=== PATIENT | male | born 1965 | race Caucasian/White ===

== ENCOUNTER 2020-11-18 06:01 | Inpatient (IN) ==
[2020-11-18 06:27] LABS: Basophils # (auto) 0.03 K/uL (0-0.2); Basophils % (auto) 0.2 %; Eosinophils # (auto) 0.04 K/uL (0-0.5); Eosinophils % (auto) 0.3 %; Hematocrit (blood only) 41.2 % (42-52); Hemoglobin 14.3 g/dL (14.0-18.0); Immature Granulocytes # (auto) 0.07 K/uL (0.00-0.02); Immature Granulocytes % (auto) 0.4 %; Lymphocytes # (auto) 0.91 K/uL (1.2-3.4); Lymphocytes % (auto) 5.8 %; Mean Corpuscular Hemoglobin 30.6 pg (25-34); Mean Corpuscular Hgb Conc 34.7 g/dL (32-36); Mean Corpuscular Volume 88.2 fL (80-100); Mean Platelet Volume 10.7 fL (7.4-10.4); Monocytes # (auto) 0.64 K/uL (0.11-0.59); Monocytes % (auto) 4.1 %; Neutrophils # (auto) 13.92 K/uL (1.4-6.5); Neutrophils % (auto) 89.2 %; Platelet Count 296 K/uL (130-400); RDW Coefficient of Variation 14.4 % (11.5-14.5); RDW Standard Deviation 46.5 fL (36.4-46.3); Red Blood Count 4.67 M/uL (4.7-6.1); White Blood Count 15.61 K/uL (4.8-10.8)
[2020-11-18 06:43] LABS: Alanine Aminotransferase 50 U/L (12-78); Albumin Level 4.3 gm/dl (3.4-5.0); Aspartate Aminotransferase 27 U/L (15-37); BUN Creatinine Ratio 20.4 (10-20); Blood Urea Nitrogen 20 mg/dl (7-18); Calcium 8.8 mg/dl (8.5-10.1); Carbon Dioxide 27 mmol/L (21-32); Chloride 107 mmol/L (98-107); Est GFR (African American) 100.9; Est GFR (Non-African American) 87.1; Glucose 172 mg/dl (70-99); Potassium 3.5 mmol/L (3.5-5.1); Sodium 140 mmol/L (136-145)
[2020-11-18 06:48] LABS: Albumin Globulin Ratio 1.2 (0.9-2); Alkaline Phosphatase 98 U/L (45-117); Bilirubin,Total 0.4 mg/dl (0.2-1); Globulin 3.5 gm/dl (2.5-4.0); Total Protein 7.8 gm/dl (6.4-8.2); Troponin I < 0.015 ng/ml (0-0.045)
[2020-11-18] MEDS ORDERED: KETOROLAC TROMETHAMINE 15 MG/ML VIAL IV ONE (06:48)
[2020-11-18] MEDS ORDERED: SODIUM CHLORIDE 0.9% 1000ML 1,000 ML IV ONE (06:51)
--- NOTE | 2020-11-18 06:55 | Emergency Department Note ---
Impression & Plan Seizure, Thoracic compression fracture, Diabetes ED Provider Note NAME: REBECA GARCIA AGE: 54 SEX: M : 1965 ARRIVES VIA: Ambulance INFORMANT: Patient, ED PROVIDER(S): Bill Hendrickson DO CHIEF COMPLAINT: Back pain HPI: Patient is a 54-year-old male who presents ER who was at [facility]. He woke up to fill the stove with wood. This last thing he remembers. His friends woke up to him yelling. They did not believe that he was confused. He is c omplaining severe left upper back pain. He has had this multiple times before in the past. Never been evaluated for this. He does have a history of low blood sugar. He does have seizures from low blood sugar but no seizure disorder. He denies any headache or change in vision. No neck pain. No chest pain, belly pain, or any other extremity pain. No weakness or numbness. He notes his tongue does hurt. No other exacerbating or remitting factors. He was given 10 mg of morphine as well as Zofran prior to arrival by EMS. Following this he became slightly hypoxic. He also admits to loss of control of his bladder but no loss control of bowels. ROS: See above HPI for pertinent positives & negatives. A total of 10 systems reviewed and were otherwise negative. PAST MEDICAL HISTORY:See Below PAST SURGICAL HISTORY:See Below FAMILY HISTORY:See Below SOCIAL HISTORY:See Below HOME MEDICATIONS:See Below ALLERGIES:See Below VITALS:See Below PHYSICAL EXAMINATION: GENERAL: Sitting up in bed, alert, disheveled, mild distress HEAD: contusion to right head EYE EXAM: normal conjunctiva. PERRL and EOM's grossly intact. OROPHARYNX: Bite matos on anterior tongue NECK: supple, no nuchal rigidity, no adenopathy, non-tender LUNGS: Clear to auscultation. Normal chest wall mechanics HEART: no murmurs, S1 normal and S2 normal ABDOMEN: abdomen soft, non-tender, normo-active bowel sounds, no masses, no rebound or guarding. BACK: Back is symmetrical on inspection and there is no deformity. Tenderness just under the left scapula tracking medially to the spine. SKIN: no rashes and no bruising UPPER EXTREMITIES: upper extremities are grossly normal. LOWER EXTREMITIES: No pitting edema. NEURO EXAM: Normal sensorium, cranial nerves II-XII intact, normal speech, no weakness of arms, no weakness of legs. No drift. Finger to nose intact. Gross sensation intact. MEDICAL DECISION MAKING: Patient is a 54-year-old male who presents the ER for what appears to be a seiz ure with a fall. Fever likely secondary to hypoglycemia as he has had this before. Labs show mild leukocytosis of 15,000. No significant anemia. BMP with LFTs bilirubin troponin and lipase were negative. UA was negative. Alcohol was negative. Covid was negative. CT head neck chest and thorax shows a T5 fracture with 2 mm of retropulsion. He is having severe amount of pain. He was given IV fluids and narcotics. He was updated bedside. Discussed with orthopedics and the hospitalist for further evaluation. Triage Nursing notes reviewed. Limited review of prior medical records performed Vital Signs: reviewed and remarkable for hypoxic Differential diagnosis: Differential diagnoses includes but is not limited to lumbar radiculopathy, kidney stone, muscle strain, facture, cauda equina, mass, and disc herniation. ER treatment provided: See below Diagnostics interpreted by me: ECG: Sinus rhythm rate 72 Normal axis No PVCs QTC 457 T wave inversion lead III Cardiac Monitoring: An order was placed for continuous cardiac monitoring. The monitor shows a rate of 71 with sinus rhythm. Laboratory studies: As stated above and show below. Imaging studies: CT head and cervical spine were negative CT of the thoracic spine show T5 compression fracture 50% with 2 mm retropulsion Consultation(s): Discussed with Blue Florentino from [facility] who will evaluate him with Dr. Chacon later today Discussed with Dr. Neff for further evaluation Procedures: none Critical Care: None Past Med/Surg History Social History Smoking Status: Never smoker Feels Safe at Home: Yes Allergies Allergies Allergy/AdvReac Type Severity Reaction Status Date / Time Penicillins Allergy Severe Anaphylaxis Verified 11/18/20 07:05 Home Meds Home Medications Medication Instructions Recorded Confirmed atorvastatin 40 mg PO DAILY 11/18/20 11/18/20 cyanocobalamin (vitamin B-12) 1,000 mcg PO DAILY 11/18/20 11/18/20 [Vitamin B-12] dicyclomine 10 mg PO TID PRN 11/18/20 11/18/20 insulin glargine [Lantus Solostar 25 unit SUBCUT AMPM 11/18/20 11/18/20 U-100 Insulin] insulin lispro [Humalog KwikPen See Rx Instructions .ROUTE .COMPLEX 11/18/20 11/18/20 Insulin] levothyroxine 137 mcg PO DAILY 11/18/20 11/18/20 Results & Data (ED) Vital Signs Vital Signs - 24 hr 11/18/20 06:11 11/18/20 06:23 11/18/20 07:12 Temperature 36.6 C Temperature Source Oral Pulse Rate 72 71 Pulse Rate from SpO2 Sensor 72 Respiratory Rate 12 24 Respiratory Effort / Characteristics Non-Labored Spontaneous Respiratory Depth Normal Blood Pressure 149/88 H 142/78 H Blood Pressure Mean 108 99 Pulse Oximetry 100 87 L 98 Oxygen Delivery Method Room Air Nasal Cannula Oxygen Flow Rate 0 Sepsis Recent Fever Within 48 Hours No Sepsis New/Unexplained Change in Mental Status No Sepsis Action Taken by Nursing No Action Required Oxygen Flow Rate - Titration 2 Pulse Oximetry Post Tiitration 98 11/18/20 08:00 11/18/20 08:30 11/18/20 09:00 Temperature Temperature Source Pulse Rate 82 72 72 Pulse Rate from SpO2 Sensor 83 71 70 Respiratory Rate 18 11 L 15 Respiratory Effort / Characteristics Respiratory Depth Blood Pressure 147/80 H 138/76 139/75 Blood Pressure Mean 102 96 96 Pulse Oximetry 98 97 98 Oxygen Delivery Method Oxygen Flow Rate Sepsis Recent Fever Within 48 Hours Sepsis New/Unexplained Change in Mental Status Sepsis Action Taken by Nursing Oxygen Flow Rate - Titration Pulse Oximetry Post Tiitration 11/18/20 09:30 11/18/20 10:00 11/18/20 11:54 Temperature Temperature Source Pulse Rate 73 72 89 Pulse Rate from SpO2 Sensor 72 72 88 Respiratory Rate 13 16 23 Respiratory Effort / Characteristics Respiratory Depth Blood Pressure 135/83 146/85 H 129/73 Blood Pressure Mean 100 105 91 Pulse Oximetry 98 99 99 Oxygen Delivery Method Oxygen Flow Rate Sepsis Recent Fever Within 48 Hours Sepsis New/Unexplained Change in Mental Status Sepsis Action Taken by Nursing Oxygen Flow Rate - Titration Pulse Oximetry Post Tiitration 11/18/20 12:00 11/18/20 12:30 11/18/20 13:00 Temperature Temperature Source Pulse Rate 77 75 74 Pulse Rate from SpO2 Sensor 77 Respiratory Rate 15 16 16 Respiratory Effort / Characteristics Respiratory Depth Blood Pressure 130/70 127/67 117/66 Blood Pressure Mean 90 87 83 Pulse Oximetry 98 Oxygen Delivery Method Oxygen Flow Rate Sepsis Recent Fever Within 48 Hours Sepsis New/Unexplained Change in Mental Status Sepsis Action Taken by Nursing Oxygen Flow Rate - Titration Pulse Oximetry Post Tiitration Laboratory Data Result diagrams: 11/18/20 06:08 11/18/20 06:08 Lab Results 11/18/20 11/18/20 11/18/20 Range/Units 06:08 06:08 06:08 WBC 15.61 H (4.8-10.8) K/uL RBC 4.67 L (4.7-6.1) M/uL Hgb 14.3 (14.0-18.0) g/dL Hct 41.2 L (42-52) % MCV 88.2 (80-100) fL MCH 30.6 (25-34) pg MCHC 34.7 (32-36) g/dL RDW Std Deviation 46.5 H (36.4-46.3) fL RDW Coeff of [place] 14.4 (11.5-14.5) % Plt Count 296 (130-400) K/uL MPV 10.7 H (7.4-10.4) fL Immature Gran % (Auto) 0.4 % Neut % (Auto) 89.2 % Lymph % (Auto) 5.8 % [place] % (Auto) 4.1 % Eos % (Auto) 0.3 % Baso % (Auto) 0.2 % Neut # (Auto) 13.92 H (1.4-6.5) K/uL Lymph # (Auto) 0.91 L (1.2-3.4) K/uL [place] # (Auto) 0.64 H (0.11-0.59) K/uL Eos # (Auto) 0.04 (0-0.5) K/uL Baso # (Auto) 0.03 (0-0.2) K/uL Immature Gran # (Auto) 0.07 H (0.00-0.02) K/uL Sodium 140 (136-145) mmol/L Potassium 3.5 (3.5-5.1) mmol/L Chloride 107 (98-107) mmol/L Carbon Dioxide 27 (21-32) mmol/L Anion Gap 6.0 (3-11) BUN 20 H (7-18) mg/dl Creatinine 0.98 (0.6-1.4) mg/dl Est Cr Clr Drug Dosing 89.0 ml/min Est GFR ( Amer) 100.9 Est GFR (Non-Af Amer) 87.1 BUN/Creatinine Ratio 20.4 H (10-20) Glucose 172 H (70-99) mg/dl Calcium 8.8 (8.5-10.1) mg/dl Total Bilirubin 0.4 (0.2-1) mg/dl AST 27 (15-37) U/L ALT 50 (12-78) U/L Alkaline Phosphatase 98 (45-117) U/L Troponin I < 0.015 (0-0.045) ng/ml Total Protein 7.8 (6.4-8.2) gm/dl Albumin 4.3 (3.4-5.0) gm/dl Globulin 3.5 (2.5-4.0) gm/dl Albumin/Globulin Ratio 1.2 (0.9-2) Lipase 52 L (73-393) U/L Urine Color Urine Appearance (Clear) Urine pH (4.5-7.5) Ur Specific [place] (1.000-1.030) Urine Protein (Negative) Urine Glucose (UA) (Negative) Urine Ketones (Negative) Urine Blood (Negative) Urine Nitrite (Negative) Urine Bilirubin (Negative) Urine Urobilinogen (Negative) Ur Leukocyte Esterase (Negative) Ethyl Alcohol mg/dL (0-3) mg/dl COVID-19 Eval Order SARS-CoV-2 (PCR) (Negative) Influenza Type A (PCR) (Neg) Influenza Type B (PCR) (Neg) RSV (RT-PCR) (Neg) 11/18/20 11/18/20 11/18/20 Range/Units 07:12 07:13 10:11 WBC (4.8-10.8) K/uL RBC (4.7-6.1) M/uL Hgb (14.0-18.0) g/dL Hct (42-52) % MCV (80-100) fL MCH (25-34) pg MCHC (32-36) g/dL RDW Std Deviation (36.4-46.3) fL RDW Coeff of [place] (11.5-14.5) % Plt Count (130-400) K/uL MPV (7.4-10.4) fL Immature Gran % (Auto) % Neut % (Auto) % Lymph % (Auto) % [place] % (Auto) % Eos % (Auto) % Baso % (Auto) % Neut # (Auto) (1.4-6.5) K/uL Lymph # (Auto) (1.2-3.4) K/uL [place] # (Auto) (0.11-0.59) K/uL Eos # (Auto) (0-0.5) K/uL Baso # (Auto) (0-0.2) K/uL Immature Gran # (Auto) (0.00-0.02) K/uL Sodium (136-145) mmol/L Potassium (3.5-5.1) mmol/L Chloride (98-107) mmol/L Carbon Dioxide (21-32) mmol/L Anion Gap (3-11) BUN (7-18) mg/dl Creatinine (0.6-1.4) mg/dl Est Cr Clr Drug Dosing ml/min Est GFR ( Amer) Est GFR (Non-Af Amer) BUN/Creatinine Ratio (10-20) Glucose (70-99) mg/dl Calcium (8.5-10.1) mg/dl Total Bilirubin (0.2-1) mg/dl AST (15-37) U/L ALT (12-78) U/L Alkaline Phosphatase (45-117) U/L Troponin I (0-0.045) ng/ml Total Protein (6.4-8.2) gm/dl Albumin (3.4-5.0) gm/dl Globulin (2.5-4.0) gm/dl Albumin/Globulin Ratio (0.9-2) Lipase (73-393) U/L Urine Color Yellow Urine Appearance Clear (Clear) Urine pH 5.5 (4.5-7.5) Ur Specific [place] 1.017 (1.000-1.030) Urine Protein Negative (Negative) Urine Glucose (UA) Negative (Negative) Urine Ketones 2+ H (Negative) Urine Blood Negative (Negative) Urine Nitrite Negative (Negative) Urine Bilirubin Negative (Negative) Urine Urobilinogen Negative (Negative) Ur Leukocyte Esterase Negative (Negative) Ethyl Alcohol mg/dL < 3.0 (0-3) mg/dl COVID-19 Eval Order [facility]Rsv at [facility] SARS-CoV-2 (PCR) (Negative) Influenza Type A (PCR) (Neg) Influenza Type B (PCR) (Neg) RSV (RT-PCR) (Neg) 11/18/20 Range/Units 10:11 WBC (4.8-10.8) K/uL RBC (4.7-6.1) M/uL Hgb (14.0-18.0) g/dL Hct (42-52) % MCV (80-100) fL MCH (25-34) pg MCHC (32-36) g/dL RDW Std Deviation (36.4-46.3) fL RDW Coeff of [place] (11.5-14.5) % Plt Count (130-400) K/uL MPV (7.4-10.4) fL Immature Gran % (Auto) % Neut % (Auto) % Lymph % (Auto) % [place] % (Auto) % Eos % (Auto) % Baso % (Auto) % Neut # (Auto) (1.4-6.5) K/uL Lymph # (Auto) (1.2-3.4) K/uL [place] # (Auto) (0.11-0.59) K/uL Eos # (Auto) (0-0.5) K/uL Baso # (Auto) (0-0.2) K/uL Immature Gran # (Auto) (0.00-0.02) K/uL Sodium (136-145) mmol/L Potassium (3.5-5.1) mmol/L Chloride (98-107) mmol/L Carbon Dioxide (21-32) mmol/L Anion Gap (3-11) BUN (7-18) mg/dl Creatinine (0.6-1.4) mg/dl Est Cr Clr Drug Dosing ml/min Est GFR ( Amer) Est GFR (Non-Af Amer) BUN/Creatinine Ratio (10-20) Glucose (70-99) mg/dl Calcium (8.5-10.1) mg/dl Total Bilirubin (0.2-1) mg/dl AST (15-37) U/L ALT (12-78) U/L Alkaline Phosphatase (45-117) U/L Troponin I (0-0.045) ng/ml Total Protein (6.4-8.2) gm/dl Albumin (3.4-5.0) gm/dl Globulin (2.5-4.0) gm/dl Albumin/Globulin Ratio (0.9-2) Lipase (73-393) U/L Urine Color Urine Appearance (Clear) Urine pH (4.5-7.5) Ur Specific [place] (1.000-1.030) Urine Protein (Negative) Urine Glucose (UA) (Negative) Urine Ketones (Negative) Urine Blood (Negative) Urine Nitrite (Negative) Urine Bilirubin (Negative) Urine Urobilinogen (Negative) Ur Leukocyte Esterase (Negative) Ethyl Alcohol mg/dL (0-3) mg/dl COVID-19 Eval Order SARS-CoV-2 (PCR) NEGATIVE (Negative) Influenza Type A (PCR) Negative (Neg) Influenza Type B (PCR) Negative (Neg) RSV (RT-PCR) Negative (Neg) Administered Medications Discontinued Medications Sodium Chloride (Nss 1000ml) 1,000 mls @ 999 mls/hr IV .[id number] ONE Stop: 11/18/20 07:51 Last Infusion: 11/18/20 08:12 Dose: 0 mls/hr Documented by: [id number] Admin: 11/18/20 07:11 Dose: 999 mls/hr Documented by: [id number] Ioversol (Optiray 320 125ml) 118 ml IV ONCE ONE Stop: 11/18/20 07:01 Last Admin: 11/18/20 07:00 Dose: 118 ml Documented by: [id number] Ketorolac Tromethamine (Ketorolac Tromethamine 15 Mg/Ml Vial) 10 mg IV NOW ONE Stop: 11/18/20 06:49 Last Admin: 11/18/20 07:10 Dose: 10 mg Documented by: [id number] Morphine Sulfate (Morphine Sulfate 10 Mg/Ml Carp/Vial) 6 mg IV NOW STA Stop: 11/18/20 12:00 Last Admin: 11/18/20 12:04 Dose: 6 mg Documented by: [id number] Discharge Plan Visit Data Chief Complaint: Back Injury/Pain Stated Complaint: Pain b/w shoulder blades ED Provider: Bill Hendrickson Discharge Problem: Seizure, Thoracic compression fracture, Diabetes Discharge Instructions Interventions: ED Discharge Assessment Last Done: 11/18/20 13:06 Forms Stand Alone Forms: [employer] Prescriptions Prescriptions: No Action atorvastatin 40 mg tablet 40 mg PO DAILY RF: 0 levothyroxine 137 mcg tablet 137 mcg PO DAILY RF: 0 insulin lispro [Humalog KwikPen Insulin] 100 unit/mL insulin pen See Rx Instructions .ROUTE .COMPLEX RF: 0 Lantus Solostar U-100 Insulin 100 unit/mL (3 mL) insulin pen 25 unit SUBCUT AMPM RF: 0 cyanocobalamin (vitamin B-12) [Vitamin B-12] 1,000 mcg Tablet 1,000 mcg PO DAILY RF: 0 dicyclomine 10 mg capsule 10 mg PO TID PRN (Reason: abdominal cramping) RF: 0 Referrals Referrals: PCP,NO [Primary Care Provider] - Discharge Problem: Thoracic compression fracture Qualifiers: Encounter type: initial encounter Thoracic vertebra fracture level: T5 Qualified Code(s): S22.050A - Wedge compression fracture of T5-T6 vertebra, initial encounter for closed fracture Diabetes Qualifiers: Diabetes mellitus type: other specified (including BARON) Diabetes mellitus terminal clerk insulin use: unspecified half-way insulin use status Diabetes mellitus complication status: with other specified complication Qualified Code(s): E13.69 - Other specified diabetes mellitus with other specified complication
[2020-11-18] MEDS ORDERED: OPTIRAY 320 125ml IV ONE (07:00)
[2020-11-18 07:34] LABS: Appearance Urine Clear (Clear); Bilirubin Urine Negative (Negative); Blood Urine Negative (Negative); Color Urine Yellow; Glucose Urine UA Negative (Negative); Ketones Urine 2+ (Negative); Leukocyte Esterase Urine Negative (Negative); Nitrite Urine Negative (Negative); Protein Urine Negative (Negative); Specific Gravity Urine 1.017 (1.000-1.030); Urobilinogen Urine Negative (Negative); pH Urine 5.5 (4.5-7.5)
--- NOTE | 2020-11-18 08:40 | CT Scan Report ---
HEAD CT NONCONTRAST CT DOSE: HISTORY: Fall. TECHNIQUE: Multiaxial CT images of the head were performed without the use of intravenous contrast. A utomated exposure control was utilized for this study. A dose lowering technique was utilized adheri ng to the principles of ALARA. Comparison: None. Findings: Mild mucosal thickening within the ethmoid air cells. The mastoid air cells are clear. The calvarium and skull base are intact. The ventricles and sulci are within normal limits. There is no m ass, hematoma, midline shift, or acute infarct. Impression: No acute intracranial abnormality. ACT 112: Negative or not required by law. Electronically signed by: Kameron Marvin M.D. 11/18/2020 8:39 AM
--- NOTE | 2020-11-18 08:44 | CT Scan Report ---
CERVICAL SPINE CT CT DOSE: HISTORY: fall TECHNIQUE: Multiaxial CT images of the cervical spine were performed and reformatted in the sagittal and coronal plane without the use of contrast. A dose lowering technique was utilized adhering to th e principles of ALARA. COMPARISON: None. FINDINGS: No fractures. No subluxation. Prevertebral soft tissues and the C1-C2 interval are intact. No pneumothorax. Moderate to severe disc space narrowing within the lower cervical spine. IMPRESSION: No fractures within the cervical spine. ACT 112: Negative or not required by law. Electronically signed by: Kameron Marvin M.D. 11/18/2020 8:42 AM
--- NOTE | 2020-11-18 08:48 | CT Scan Report ---
THORACIC SPINE CT CT DOSE: HISTORY: Back pain. fall TECHNIQUE: Multiaxial CT images of the thoracic spine were performed and reformatted in the sagittal and coronal plane without the use of contrast. A dose lowering technique was utilized adhering to th e principles of ALARA. COMPARISON: None. FINDINGS: There is an acute moderate inferior endplate compression fracture at T5 demonstrating up to 50% loss of height centrally. There is 2 mm of retropulsion of the posterior inferior corner of T5. No significant central canal narrowing. Small focal superior endplate indentation at T4 and T8 favor Schmorl's nodes. No additional fractures identified within the thoracic spine. There is mild paravert ebral edema at the T5 level. IMPRESSION: An acute moderate inferior endplate compression fracture at T5 demonstrating up to 50% loss of height centrally. There is also a 2 mm of retropulsion the posterior inferior corner of T5 without central canal narrowing. ACT 112: Negative or not required by law. Electronically signed by: Kameron Marvin M.D. 11/18/2020 8:47 AM
--- NOTE | 2020-11-18 09:10 | CT Scan Report ---
CHEST CTA for PULMONARY ARTERIES CT DOSE: 1956.10 mGy.cm HISTORY: Fall. Loss of consciousness. Shortness of breath. TECHNIQUE: Multiaxial CT images of the chest were performed following the intravenous administration of contrast to evaluate the pulmonary arteries. Maximal intensity projection images were also obtaine d. A dose lowering technique was utilized adhering to the principles of ALARA. COMPARISON STUDY: None. FINDINGS: There is again noted an acute inferior endplate compression fracture at T5. Normal caliber thoracic aorta with no evidence for dissection. No pleural or pericardial effusions. The heart is bor derline enlarged. No filling defects within the pulmonary arteries to suggest pulmonary embolus. No m ediastinal or hilar lymphadenopathy. Limited views of the upper abdomen demonstrate a normal liver, s pleen, and adrenal glands. Normal caliber esophagus. No pneumothorax. Mild emphysema. The central air ways are patent. A few bibasilar linear densities which favor subsegmental atelectasis. Otherwise, no focal lung consolidations to suggest pneumonia. IMPRESSION: 1. Redemonstration of the acute inferior endplate compression fracture at T5. 2. Emphysema. 3. No evidence for pulmonary embolus. 4. A few bibasilar linear densities consistent with subsegmental atelectasis. ACT 112: Negative or not required by law. Electronically signed by: Kameron Marvin M.D. 11/18/2020 9:09 AM
--- NOTE | 2020-11-18 09:41 | XRay Report ---
XR chest 1V portable HISTORY: Atypical Chest Pain COMPARISON: None. FINDINGS: Emphysema. No focal lung consolidations to suggest pneumonia. No evidence for pulmonary bharti ma. The heart is top normal in size. No pleural effusions. No pneumothorax. IMPRESSION: No acute process. ACT 112: Negative or not required by law. Electronically signed by: Kameron Marvin M.D. 11/18/2020 9:39 AM
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
[2020-11-18 11:03] LABS: Influenza A virus by PCR Negative (Neg); Influenza B virus by PCR Negative (Neg); RSV by PCR Negative (Neg); SARS CoV2 RNA(COVID-19) InHosp NEGATIVE (Negative)
[2020-11-18] MEDS ORDERED: MoRPHine SULFATE 10 MG/ML CARP/VIAL IV STA (11:59)
--- NOTE | 2020-11-18 13:16 | Electrocardiogram Report ---
Test Reason : Blood Pressure : / mmHG Vent. Rate : 072 BPM Atrial Rate : 072 BPM P-R Int : 180 ms QRS Dur : 076 ms QT Int : 418 ms P-R-T Axes : 047 048 027 degrees QTc Int : 457 ms Normal sinus rhythm Normal ECG No previous ECGs available Confirmed by Guy Herrera ([id number]) on 11/18/2020 1:16:34 PM Referred By: REFERRED SELF Confirmed By:Guy Herrera
[2020-11-18] MEDS ORDERED: GLUCAGON FOR INJ 1 MG VIAL SQ PRN (13:46)
[2020-11-18] MEDS ORDERED: ALUMINUM/MAGNESIUM SUSP 30 ML UDC PO PRN (13:46)
[2020-11-18] MEDS ORDERED: CARBOHYDRATES FOR HYPOGLYCEMIA PO PRN ×2 (13:46→14:15)
[2020-11-18] MEDS ORDERED: GLUCOSE 10 TABS/TUBE PO PRN ×2 (13:46→14:15)
[2020-11-18] MEDS ORDERED: DEXTROSE 50% 50 ML SYRINGE IV PRN ×2 (13:46→14:15)
[2020-11-18] MEDS ORDERED: GLUCOSE 40% GEL 15 GM TUBE PO PRN ×2 (13:46→14:15)
[2020-11-18] MEDS ORDERED: ONDANSETRON INJ 2 MG/ML 2 ML VIAL IV PRN (13:46)
[2020-11-18] MEDS ORDERED: DICYCLOMINE HCL 10 MG CAP PO PRN (13:46)
[2020-11-18] MEDS: oxyCODONE HCL IR 5 MG TAB (IMMEDIATE RELEASE) PO PRN (13:59)
[2020-11-18] MEDS: ACETAMINOPHEN 500 MG TAB PO SCH ×2 (13:59→20:53)
[2020-11-18] MEDS ORDERED: PHARMACY GLYCEMIC MGMT CONSULT PRN (14:00)
--- NOTE | 2020-11-18 14:11 | Pharmacy Report ---
Pharmacy Glycemic Short Note 2 - Date of Service November 18, 2020 - Glycemic Short BSG Results (Last 24 hours): 11/18/20 11/18/20 06:08 13:55 Glucose 172 H POC Glucose 121 H OUTPATIENT ANTIDIABETIC REGIMEN: * Lantus 25 units SQ BID * Humalog per scale * CF = 30mg/dl/unit * CR = 1 unit for every 10g CHO consumed ASSESSMENT: * 54yo T2DM male with unknown degree of outpatient glycemic control. A1c pending for AM labs tomorrow * Pt is maintained on SQ basal bolus insulin regimen as an outpatient. Pt did not take his Lantus LINE WELDER this morning. * Pt has a history of hypoglycemia resulting in seizures - will dose insulin conservatively. * Will start with outpatient dosing of rapid acting bolus insulin - tighten CF/CR slightly since pt did not take insulin LINE WELDER * Will dose Lantus based on BSG to prevent hypoglycemia - first dose with dinner since patient did not take AM dose PLAN FOR INPATIENT GLYCEMIC CONTROL: * Basal insulin * Lantus SQ BID - dose based on BSG * BSG below 140mg/dl --> 15 units * BSG 140-180 mg/dl --> 20 units * BSG above 180 mg/dl --> 25 units (outpatient dosing) * Bolus insulin * NovoLog per scale ACHS or Q6hrs while NPO * Goal Range: Low 90 mg/dL - High 140 mg/dL * Correction Factor: 25 mg/dL/unit * Nutritional / Prandial insulin per carb ratio of 1 unit per 9 grams CHO consumed PLAN FOR DISCHARGE: * TBD
[2020-11-18] MEDS ORDERED: GLUCAGON FOR INJ 1 MG VIAL IM PRN (14:15)
[2020-11-18 14:36] LABS: Thyroid Stimulating Hormone 23.2 uIu/ml (0.300-4.500)
[2020-11-18 14:50] LABS: T4 Free Thyroxine 0.98 ng/dl (0.8-1.6)
[2020-11-18] MEDS: INSULIN ASPART 100 UNITS/ML 3 ML PEN SC SCH ×3 (15:01→20:52)
[2020-11-18] MEDS: LIDOCAINE 5% 1 PATCH TD SCH (15:01)
[2020-11-18] MEDS: INSULIN GLARGINE SOLOSTAR 100 UNITS/ML 3 ML PEN SQ SCH (15:03)
[2020-11-18] MEDS: MoRPHine SULFATE 2 MG/ML CARP IV PRN (20:53)
[2020-11-19] MEDS: MoRPHine SULFATE 2 MG/ML CARP IV PRN ×2 (05:09→17:28)
[2020-11-19] MEDS: LEVOTHYROXINE SODIUM 137 MCG TABLET PO SCH (06:27)
[2020-11-19 07:15] LABS: Hematocrit (blood only) 40.5 % (42-52); Hemoglobin 13.4 g/dL (14.0-18.0); Mean Corpuscular Hemoglobin 29.4 pg (25-34); Mean Corpuscular Hgb Conc 33.1 g/dL (32-36); Mean Corpuscular Volume 88.8 fL (80-100); Mean Platelet Volume 10.1 fL (7.4-10.4); Platelet Count 262 K/uL (130-400); RDW Coefficient of Variation 14.6 % (11.5-14.5); RDW Standard Deviation 47.9 fL (36.4-46.3); Red Blood Count 4.56 M/uL (4.7-6.1); White Blood Count 9.12 K/uL (4.8-10.8)
[2020-11-19 07:50] LABS: BUN Creatinine Ratio 13.2 (10-20); Calcium 8.5 mg/dl (8.5-10.1); Creatinine Clr Calc Pharmacy 92.8 ml/min; Est GFR (African American) 106.1; Est GFR (Non-African American) 91.6; Potassium 4.2 mmol/L (3.5-5.1)
[2020-11-19] MEDS: INSULIN GLARGINE SOLOSTAR 100 UNITS/ML 3 ML PEN SQ SCH ×2 (08:06→21:32)
[2020-11-19] MEDS: INSULIN ASPART 100 UNITS/ML 3 ML PEN SC SCH ×4 (08:08→21:32)
[2020-11-19] MEDS: LIDOCAINE 5% 1 PATCH TD SCH (08:12)
[2020-11-19] MEDS: ATORVASTATIN 40 MG TAB PO SCH (08:13)
[2020-11-19] MEDS: ACETAMINOPHEN 500 MG TAB PO SCH ×3 (08:14→21:31)
[2020-11-19] MEDS: oxyCODONE HCL IR 5 MG TAB (IMMEDIATE RELEASE) PO PRN (08:17)
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
--- NOTE | 2020-11-19 11:48 | Pharmacy Report ---
Pharmacy Glycemic Short Note 2 - Date of Service November 19, 2020 - Glycemic Short BSG Results (Last 24 hours): 11/18/20 11/18/20 11/18/20 13:55 16:49 20:49 Glucose POC Glucose 121 H 122 H 142 H 11/19/20 11/19/20 11/19/20 06:48 07:39 11:36 Glucose 250 H POC Glucose 266 H 233 H OUTPATIENT ANTIDIABETIC REGIMEN: * Lantus 25 units SQ BID * Humalog per scale * CF = 30mg/dl/unit * CR = 1 unit for every 10g CHO consumed ASSESSMENT: 11/19 * Pt has received 20 units of insulin over the past 24hrs * 15 units of basal with Lantus * 5 units of bolus with NovoLog * BSGs 040-202-140-142-266-233 mg/dl * Pt received 15 units of Lantus (reduced dosing yesterday) for BSGs < 140. 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 Conservatively increased dosing back to outpatient dosing. Pt has a history of hypoglycemia resulting in seizures - will dose insulin conservatively. * All BSGs >200 today. Will tighten CF/CR. Basal already increased per scale. 11/18 * 54yo T2DM male with unknown degree of outpatient glycemic control. A1c pending for AM labs tomorrow * Pt is maintained on SQ basal bolus insulin regimen as an outpatient. Pt did not take his Lantus [employer] ASS[employer]IATE this morning. * Pt has a history of hypoglycemia resulting in seizures - will dose insulin conservatively. * Will start with outpatient dosing of rapid acting bolus insulin - tighten CF/C R slightly since pt did not take insulin [employer] ASS[employer]IATE * Will dose Lantus based on BSG to prevent hypoglycemia - first dose with dinner since patient did not take AM dose PLAN FOR INPATIENT GLYCEMIC CONTROL: * Basal insulin: increase dosing/scale parameters * Lantus SQ BID - dose based on BSG * BSG below 160mg/dl --> 20 units * BSG 160 mg/dl or above --> 25 units (outpatient dosing) * Bolus insulin: tighten CF/CR * NovoLog per scale ACHS or Q6hrs while NPO * Goal Range: Low 90 mg/dL - High 140 mg/dL * Correction Factor: 20 mg/dL/unit * Nutritional / Prandial insulin per carb ratio of 1 unit per 6 grams CHO consumed PLAN FOR DISCHARGE: * TBD
--- NOTE | 2020-11-19 12:25 | Orthopedic Consultation ---
Date of Consultation November 19, 2020 Assessment & Plan (1) Thoracic compression fracture: I discussed this morning with the patient the results of his CAT scan and his T5 compression fracture. This is a very difficult fracture to brace with any success. It is however inherently stable. There is a high likelihood this would heal on its own as long as he avoids any significant activity particularly lifting anything more than 5 pounds. We will could however consider a kyphoplasty at this level to help with his pain. Suggest we observe him for another 24 hours to see if he improves. If his pain becomes incapacitating we may consider kyphoplasty of T5 early in the week. I would like to review this with medicine over and if he has any risks of undergoing anesthesia in light of his medical issues. Patient understands and agrees. Present on Admission?: Yes History of Present Illness Reason for Consultation: T5 compression fracture Attending Physician: Torito Sainz History of Present Illness This is a 54-year-old male presents the hospital after a possible seizure. Upon work-up he was diagnosed with a T5 compression fracture. Today he states most of his pain is in the intrascapular region. Is worse with activity sitting up twisting or lifting. He denies any numbness or tingling in the upper extremities. He denies any known trauma or fall. Allergies Allergy/AdvReac Type Severity Reaction Status Date / Time Penicillins Allergy Severe Anaphylaxis Verified 11/18/20 07:05 Home Medications Medication Instructions Recorded Confirmed Type atorvastatin 40 mg PO DAILY 11/18/20 11/18/20 History cyanocobalamin (vitamin B-12) 1,000 mcg PO DAILY 11/18/20 11/18/20 History [Vitamin B-12] dicyclomine 10 mg PO TID PRN 11/18/20 11/18/20 History insulin glargine [Lantus Solostar 25 unit SUBCUT AMPM 11/18/20 11/18/20 History U-100 Insulin] insulin lispro [Humalog KwikPen See Rx Instructions .ROUTE .COMPLEX 11/18/20 11/18/20 History Insulin] levothyroxine 137 mcg PO DAILY 11/18/20 11/18/20 History Patient History Social History Smoking Status: Former smoker Second Hand Exposure: No; Do You Dip or Chew Tobacco: No; Tobacco Cessation Education Requested by Patient: No Hx Alcohol Use: Yes Alcohol type: beer Hx Substance Use: No Preferred Language: Comoran Communication Ability: Effective Rf Manager Required: No Beliefs That Will Affect Care: None Current Living Situation: Spouse Other Information That Helps Us Care for You: No Feels Safe at Home: Yes Safety Concerns: Feels Safe At This Time Assistive Devices: None Physical Exam Physical Exam: On exam he is alert and oriented he is cooperative. He exhibits excellent strength testing. Was he is able to sit up on his own volition without marked difficulty. He complains of intrascapular pain. There is some pain to percussion in this region. Results & Data ([facility]) Vital Signs (Past 12 Hours) Vital Signs Temp Pulse Pulse Resp BP Pulse Ox 11/19/20 11:15 36.7 C 70 18 120/65 95 11/19/20 07:53 76 11/19/20 07:30 36.8 C 73 18 125/65 95 11/19/20 03:50 36.8 C 67 17 124/61 96 11/19/20 01:35 63 (1) Thoracic compression fracture Encounter type: initial encounter Thoracic vertebra fracture level: T5 Qualified Code(s): S22.050A - Wedge compression fracture of T5-T6 vertebra, initial encounter for closed fracture
--- NOTE | 2020-11-19 20:32 | Hospitalist Progress Note ---
Date of Service November 19, 2020 Assessment & Plan (1) Seizure: Patient has had seizures in the past associate with hypoglycemia, he did also have an episode which sounds procedure part of his diabetic diagnosis. CT scan of the head and cervical spine performed 11/18/20 shows no acute intracr anial abnormality, no fractures within the cervical spine Patient also had a CT angiogram of the chest, 11/18/2020 this shows the compression fracture T5, emphysema, no PE, subsegmental atelectasis Appreciate Neuro input: Rock obtain EEG and MRI of brain. May need holter monitor at discharge. Will hold Antiepileptic drugs at this time. (2) Diabetes: The patient's diabetes he typically typically takes Lantus 25 units twice daily and the lispro sliding scale with meals given his Lantus doses exceeding 0.5 units/kg reduce his Lantus dose slightly. He also does not have a great idea about his sliding scale. He states he did not take anything of the usual with regards to his insulin dosing but did not eat the typical amount of food on the day prior. 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 May benefit from cutting back blood sugars. (3) Thoracic compression fracture: Thoracic spine CT IMPRESSION: An acute moderate inferior endplate compression fracture at T5 demonstrating up to 50% loss of height centrally. There is also a 2 mm of retropulsion the posterior inferior corner of T5 without central canal narrowing. Patient will be on standard Tylenol scheduled he will be on Lidoderm patch with as needed opiates for pain breakthrough Orthopedic consultation Dr. Chacon consider kyphoplasty (4) Hypothyroidism: Patient remains on Synthroid therapy, TSH and T4 will be at the ER labs (5) Dyslipidemia: Patient is atorvastatin 40 (6) DVT prophylaxis: SCDs until the determination of surgery is passed Admission and Anticipated Discharge Date Admission Date: November 18, 2020 Subjective Patient continues to have pain in his back. He feels like it is still moderate to sevre in intensity. He feels like he will lean towards surgery if he continues to have pain. Review of Systems Review of Systems: All systems reviewed & are unremarkable except as noted in HPI & below Physical Exam Physical Exam: Patient remains in mild distress. Tip of his tongue has a contusion with a small laceration Head exam is normocephalic atraumatic no scleral icterus Neck is without JVD, thyromegaly, or carotid bruits. Lungs are clear to auscultation, no focal loss of breath sounds Cardiac exam, Rhythm is regular.. No murmurs, rubs or gallops. Abdominal exam reveals normal bowel sounds, soft non tender, no masses Extremities are nonedematous and both pedal pulses are present Neurologic exam is alert and oriented, no focal loss of strength or sensation Skin is without bruises or rashes Psychologically is without concerns for anxiety or depression Results & Data Results & Data ([facility]) Vital Signs (Past 12 Hours) Vital Signs Temp Pulse Pulse Resp BP Pulse Ox 11/19/20 19:47 36.9 C 69 20 130/70 96 11/19/20 16:00 68 11/19/20 14:45 36.8 C 85 18 133/72 95 11/19/20 11:15 36.7 C 70 18 120/65 95 PG Care Time/CCT Total # of Minutes Spent Total Time Spent with Patient: Total time spent is greater than 50% in coordination of care (as documented) at patient's floor/unit and/or counseling patient: Coding Level of Care Code 21016 Subseq Hosp Care Lvl 3 Diagnoses Seizure R56.9 Diabetes E13.69 Diabetes mellitus complication status: with other specified complication 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: unspecified termite control service representative insulin use status Diabetes mellitus type: other specified (including BARON) Thoracic compression fracture S22.050A Encounter type: initial encounter Thoracic vertebra fracture level: T5 Hypothyroidism E03.9 Dyslipidemia E78.5 DVT prophylaxis Z29.9 Time Spent (min) 35 (1) Diabetes Diabetes mellitus complication status: with other specified complication 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: unspecified half-way insulin use status Diabetes mellitus type: other specified (including BARON) Qualified Code(s): E13.69 - Other specified diabetes mellitus with other specified complication (2) Thoracic compression fracture Encounter type: initial encounter Thoracic vertebra fracture level: T5 Qualified Code(s): S22.050A - Wedge compression fracture of T5-T6 vertebra, initial encounter for closed fracture
[2020-11-20] MEDS ORDERED: GADOBUTROL 65ML VIAL IV ONE (01:54)
[2020-11-20] MEDS: MoRPHine SULFATE 4 MG/ML 1 ML CARP\\VIAL IV PRN ×3 (02:31→21:55)
[2020-11-20 05:52] LABS: Estimated Average Glucose 180 mg/dl; Hemoglobin A1C 7.9 % (4.5-5.6)
[2020-11-20] MEDS: LEVOTHYROXINE SODIUM 137 MCG TABLET PO SCH (06:06)
[2020-11-20] MEDS: ACETAMINOPHEN 500 MG TAB PO SCH ×3 (08:04→21:46)
[2020-11-20] MEDS: oxyCODONE HCL IR 5 MG TAB (IMMEDIATE RELEASE) PO PRN (08:04)
[2020-11-20] MEDS: ATORVASTATIN 40 MG TAB PO SCH (08:05)
[2020-11-20 08:06] LABS: Hematocrit (blood only) 44.2 % (42-52); Hemoglobin 14.8 g/dL (14.0-18.0); Mean Corpuscular Hemoglobin 30.3 pg (25-34); Mean Corpuscular Hgb Conc 33.5 g/dL (32-36); Mean Corpuscular Volume 90.4 fL (80-100); Mean Platelet Volume 10.5 fL (7.4-10.4); Platelet Count 268 K/uL (130-400); RDW Coefficient of Variation 14.3 % (11.5-14.5); RDW Standard Deviation 47.6 fL (36.4-46.3); Red Blood Count 4.89 M/uL (4.7-6.1); White Blood Count 8.21 K/uL (4.8-10.8)
[2020-11-20] MEDS: INSULIN GLARGINE SOLOSTAR 100 UNITS/ML 3 ML PEN SQ SCH (08:06)
[2020-11-20] MEDS: INSULIN ASPART 100 UNITS/ML 3 ML PEN SC SCH ×4 (08:07→22:42)
[2020-11-20] MEDS: LIDOCAINE 5% 1 PATCH TD SCH (08:08)
--- NOTE | 2020-11-20 08:28 | Magnetic Resonance Report ---
MRI OF THE BRAIN WITHOUT AND WITH IV CONTRAST SEIZURE PROTOCOL CLINICAL HISTORY: Seizure. COMPARISON STUDY: Head CT November 18, 2020. TECHNIQUE: Utilizing a 1.5 Shahnaz magnet and dedicated coil, multiplanar, multiecho imaging of the br ain was performed pre and postcontrast administration. IV administration of 7 mL of Gadavist contras t was uneventful. Thin cut coronal T2 imaging was performed according to seizure protocol. FINDINGS: There are no foci of restricted diffusion to suggest acute infarct. No acute intracranial h emorrhage, midline shift or mass effect is present. Brain findings normal. Ventricular system is norm al. Basilar cisterns are patent. There are no extra-axial collections. Flow-voids for the major intra cranial vessels are present. There is no intracranial mass or pathologic enhancement. No significant parenchymal signal abnormality is present. There is no evidence for mesial temporal sclerosis. There is minimal sinus mucosal thickening. Calvarial signal is normal. IMPRESSION: 1. No acute intracranial findings. 2. No intracranial mass or pathologic enhancement. ACT 112: Negative or not required by law. Electronically signed by: Jamie Duran M.D. 11/20/2020 8:27 AM
[2020-11-20 08:45] LABS: BUN Creatinine Ratio 12.9 (10-20); Calcium 9.1 mg/dl (8.5-10.1); Creatinine Clr Calc Pharmacy 89.9 ml/min; Est GFR (African American) 102.2; Est GFR (Non-African American) 88.1; Potassium 4.4 mmol/L (3.5-5.1)
[2020-11-20] MEDS: MoRPHine SULFATE 2 MG/ML CARP IV PRN (11:57)
--- NOTE | 2020-11-20 12:34 | Orthopedic Progress Note ---
Date of Service November 20, 2020 Assessment & Plan (1) Thoracic compression fracture: Admission and Anticipated Discharge Date Admission Date: November 18, 2020 This time patient still in significant discomfort secondary to his T5 compression fracture. He does live almost 2 hours away and will be transitioning home in the next day or so. In light of his severe pain risk of recurrent seizure would like to stabilize this fracture by way of a kyphoplasty. Risk benefits pros cons and alternatives were outlined in detail. We will make him n.p.o. after midnight plan for surgery tomorrow. Subjective Patient still complaining of incapacitating interscapular pain with radiation to the left subscapular region. Denies any numbness or tingling in the arms or legs. He states this markedly limits his ability to tolerate sitting up or transitioning in his bed. Physical Exam Physical Exam: On exam is good strength testing both upper and lower extremities. Sensory intact. He has marked pain to percussion of the mid thoracic spine. Results & Data ([facility]) Vital Signs (Past 12 Hours) Vital Signs Temp Pulse Pulse Resp BP Pulse Ox 11/20/20 11:24 36.7 C 69 18 132/70 98 11/20/20 07:39 36.7 C 66 18 144/72 H 97 11/20/20 07:30 63 11/20/20 05:04 57 L 11/20/20 03:00 36.8 C 63 20 128/69 95 (1) Thoracic compression fracture Encounter type: initial encounter Thoracic vertebra fracture level: T5 Qualified Code(s): S22.050A - Wedge compression fracture of T5-T6 vertebra, initial encounter for closed fracture
--- NOTE | 2020-11-20 13:29 | Anesthesiology Consultation ---
Date of Service November 20, 2020 History Surgery Operation Date: 11/21/20 13:55 Proposed Procedures p T5 Kyphoplasty - Dinesh Chacon, Height/Weight Height: 5 ft 10 in Weight: 78.2 kg Allergies Allergy/AdvReac Type Severity Reaction Status Date / Time Penicillins Allergy Severe Anaphylaxis Verified 11/18/20 07:05 Medications Home Medications Medication Instructions Recorded Confirmed Last Taken atorvastatin 40 mg PO DAILY 11/18/20 11/18/20 11/17/20 cyanocobalamin (vitamin B-12) 1,000 mcg PO DAILY 11/18/20 11/18/20 11/17/20 [Vitamin B-12] dicyclomine 10 mg PO TID PRN 11/18/20 11/18/20 Unknown insulin glargine [Lantus Solostar 25 unit SUBCUT AMPM 11/18/20 11/18/20 11/17/20 U-100 Insulin] insulin lispro [Humalog KwikPen See Rx Instructions .ROUTE .COMPLEX 11/18/20 11/18/20 11/17/20 Insulin] levothyroxine 137 mcg PO DAILY 11/18/20 11/18/20 11/17/20 Active Medications Generic Name Dose Route Start Last Admin Trade Name Freq PRN Reason Stop Dose Admin Acetaminophen 1,000 mg 11/18/20 14:00 11/20/20 08:04 Acetaminophen 500 Mg Tab PO 12/18/20 13:59 1,000 mg TID TAMMY Administration Atorvastatin Calcium 40 mg 11/19/20 09:00 11/20/20 08:05 Atorvastatin 40 Mg Tab PO 12/19/20 08:59 40 mg DAILY TAMMY Administration Insulin Aspart 0 units 11/18/20 13:46 11/20/20 12:40 Insulin Aspart 100 Units/Ml 3 Ml Pen SC 12/18/20 13:45 5 units ACHS TAMMY Administration Insulin Glargine 0 units 11/18/20 16:30 11/20/20 08:06 Insulin Glargine Solostar 100 Units/Ml 3 Ml Pen SQ 12/18/20 16:29 25 units BID TAMMY Administration Protocol Levothyroxine Sodium 137 mcg 11/19/20 06:30 11/20/20 06:06 Levothyroxine Sodium 137 Mcg Tablet PO 12/19/20 06:29 137 mcg DAILYBB TAMMY Administration Lidocaine 1 patch 11/18/20 13:46 11/20/20 08:08 Lidocaine 5% 1 Patch TD 12/18/20 13:45 1 patch QAM TAMMY Administration Miscellaneous 1 ea 11/18/20 21:00 11/19/20 21:34 Remove Lidoderm Patch N/A 12/18/20 20:59 1 ea DAILY@2100 TAMMY Administration Morphine Sulfate 2 mg 11/18/20 13:46 11/20/20 11:57 Morphine Sulfate 2 Mg/Ml Carp IV 12/02/20 13:45 2 mg Q4 PRN Administration Pain Morphine Sulfate 4 mg 11/18/20 13:46 11/20/20 02:31 Morphine Sulfate 4 Mg/Ml 1 Ml Carp\Vial IV 12/02/20 13:45 4 mg Q4 PRN Administration Pain Oxycodone HCl 10 mg 11/18/20 13:46 11/20/20 08:04 Oxycodone Hcl Ir 5 Mg Tab (Immediate Release) PO 12/02/20 13:45 10 mg Q6H PRN Administration Moderate Pain Social History Smoking Status: Former smoker Do You Dip or Chew Tobacco: No Hx Alcohol Use: Yes Alcohol type: beer alcohol intake frequency: a few times a week Hx Substance Use: No Physical Exam Vital Signs Last Vital Signs Temp 36.7 C 11/20/20 11:24 Pulse 69 11/20/20 11:24 Resp 18 11/20/20 11:24 BP 132/70 11/20/20 11:24 Pulse Ox 98 11/20/20 11:24 Testing Laboratory Results 11/20/20 07:24 11/20/20 07:24 Hemoglobin A1c 7.9 % (4.5-5.6) H 11/19/20 06:48 Urine Color Yellow 11/18/20 07:12 Urine Appearance Clear (Clear) 11/18/20 07:12 Urine pH 5.5 (4.5-7.5) 11/18/20 07:12 Ur Specific [place] 1.017 (1.000-1.030) 11/18/20 07:12 Urine Protein Negative (Negative) 11/18/20 07:12 Urine Glucose (UA) Negative (Negative) 11/18/20 07:12 Urine Ketones 2+ (Negative) H 11/18/20 07:12 Urine Nitrite Negative (Negative) 11/18/20 07:12 Ur Leukocyte Esterase Negative (Negative) 11/18/20 07:12 11/20/20 11/20/20 11:50 07:45 POC Glucose 152 H 232 H Electrocardiogram Date: 11/18/20 Findings: + NSR @ (72bpm)
--- NOTE | 2020-11-20 14:38 | Electroencephalogram ---
EEG Procedure Note Date of Service November 20, 2020 Start / End Times Start Time: 10:42 AM End Time: 11:02 AM Referring Physician Torito Sainz History Seizures Home Medication List Medication Instructions Recorded Confirmed Type atorvastatin 40 mg PO DAILY 11/18/20 11/18/20 History cyanocobalamin (vitamin B-12) 1,000 mcg PO DAILY 11/18/20 11/18/20 History [Vitamin B-12] dicyclomine 10 mg PO TID PRN 11/18/20 11/18/20 History insulin glargine [Lantus Solostar 25 unit SUBCUT AMPM 11/18/20 11/18/20 History U-100 Insulin] insulin lispro [Humalog KwikPen See Rx Instructions .ROUTE .COMPLEX 11/18/20 11/18/20 History Insulin] levothyroxine 137 mcg PO DAILY 11/18/20 11/18/20 History Inpatient Medication List Acetaminophen (Acetaminophen 500 Mg Tab) 1,000 mg PO TID TAMMY Stop: 12/18/20 13:59 Last Admin: 11/20/20 13:59 Dose: 1,000 mg Documented by: [id number] Admin: 11/20/20 08:04 Dose: 1,000 mg Documented by: [id number] Admin: 11/19/20 21:31 Dose: 1,000 mg Documented by: [id number] Admin: 11/19/20 14:40 Dose: 1,000 mg Documented by: [id number] Admin: 11/19/20 08:14 Dose: 1,000 mg Documented by: [id number] Admin: 11/18/20 20:53 Dose: 1,000 mg Documented by: [id number] Admin: 11/18/20 13:59 Dose: 1,000 mg Documented by: [id number] Atorvastatin Calcium (Atorvastatin 40 Mg Tab) 40 mg PO DAILY TAMMY Stop: 12/19/20 08:59 Last Admin: 11/20/20 08:05 Dose: 40 mg Documented by: [id number] Admin: 11/19/20 08:13 Dose: 40 mg Documented by: [id number] Insulin Aspart (Insulin Aspart 100 Units/Ml 3 Ml Pen) 0 units SC ACHS TAMMY Stop: 12/18/20 13:45 Last Admin: 11/20/20 12:40 Dose: 5 units Documented by: [id number] Cosigned by: [id number] Admin: 11/20/20 08:07 Dose: 15 units Documented by: [id number] Cosigned by: [id number] Admin: 11/19/20 21:32 Dose: Not Given Documented by: [id number] Cosigned by: [id number] Admin: 11/19/20 17:26 Dose: 8 units Documented by: [id number] Cosigned by: [id number] Admin: 11/19/20 11:57 Dose: 15 units Documented by: [id number] Cosigned by: [id number] Admin: 11/19/20 08:08 Dose: 11 units Documented by: [id number] Cosigned by: [id number] Admin: 11/18/20 20:52 Dose: 1 units Documented by: [id number] Cosigned by: [id number] Admin: 11/18/20 16:55 Dose: 2 units Documented by: [id number] Cosigned by: [id number] Admin: 11/18/20 15:01 Dose: 2 units Documented by: [id number] Cosigned by: [id number] Insulin Glargine (Insulin Glargine Solostar 100 Units/Ml 3 Ml Pen) 0 units SQ BID TAMMY; Protocol Stop: 12/18/20 16:29 Last Admin: 11/20/20 08:06 Dose: 25 units Documented by: [id number] Cosigned by: [id number] Admin: 11/19/20 21:32 Dose: 20 units Documented by: [id number] Cosigned by: [id number] Admin: 11/19/20 08:06 Dose: 25 units Documented by: [id number] Cosigned by: [id number] Admin: 11/18/20 15:03 Dose: 15 units Documented by: [id number] Cosigned by: [id number] Levothyroxine Sodium (Levothyroxine Sodium 137 Mcg Tablet) 137 mcg PO DAILYBB [facility] Stop: 12/19/20 06:29 Last Admin: 11/20/20 06:06 Dose: 137 mcg Documented by: [id number] Admin: 11/19/20 06:27 Dose: 137 mcg Documented by: [id number] Lidocaine (Lidocaine 5% 1 Patch) 1 patch TD QAM [facility] Stop: 12/18/20 13:45 Last Admin: 11/20/20 08:08 Dose: 1 patch Documented by: [id number] Admin: 11/19/20 08:12 Dose: 1 patch Documented by: [id number] Admin: 11/18/20 15:01 Dose: 1 patch Documented by: [id number] Miscellaneous (Remove Lidoderm Patch) 1 ea N/A DAILY@2100 TAMMY Stop: 12/18/20 20:59 Last Admin: 11/19/20 21:34 Dose: 1 ea Documented by: [id number] Admin: 11/18/20 21:15 Dose: 1 ea Documented by: [id number] Morphine Sulfate (Morphine Sulfate 2 Mg/Ml Carp) 2 mg IV Q4 PRN PRN Reason: Pain Stop: 12/02/20 13:45 Last Admin: 11/20/20 11:57 Dose: 2 mg Documented by: [id number] Admin: 11/19/20 17:28 Dose: 2 mg Documented by: [id number] Admin: 11/19/20 05:09 Dose: 2 mg Documented by: [id number] Admin: 11/18/20 20:53 Dose: 2 mg Documented by: [id number] Morphine Sulfate (Morphine Sulfate 4 Mg/Ml 1 Ml Carp\Vial) 4 mg IV Q4 PRN PRN Reason: Pain Stop: 12/02/20 13:45 Last Admin: 11/20/20 02:31 Dose: 4 mg Documented by: [id number] Oxycodone HCl (Oxycodone Hcl Ir 5 Mg Tab (Immediate Release)) 10 mg PO Q6H PRN PRN Reason: Moderate Pain Stop: 12/02/20 13:45 Last Admin: 11/20/20 08:04 Dose: 10 mg Documented by: [id number] Admin: 11/19/20 08:17 Dose: 10 mg Documented by: [id number] Admin: 11/18/20 13:59 Dose: 10 mg Documented by: [id number] Discontinued Medications Gadobutrol (Gadobutrol 65ml Vial) 7 ml IV ONCE ONE Stop: 11/20/20 01:55 Last Admin: 11/20/20 01:55 Dose: 7 ml Documented by: [id number] Sodium Chloride (Nss 1000ml) 1,000 mls @ 999 mls/hr IV .Q1H1M ONE Stop: 11/18/20 07:51 Last Infusion: 11/18/20 08:12 Dose: 0 mls/hr Documented by: [id number] Admin: 11/18/20 07:11 Dose: 999 mls/hr Documented by: [id number] Ioversol (Optiray 320 125ml) 118 ml IV ONCE ONE Stop: 11/18/20 07:01 Last Admin: 11/18/20 07:00 Dose: 118 ml Documented by: [id number] Ketorolac Tromethamine (Ketorolac Tromethamine 15 Mg/Ml Vial) 10 mg IV NOW ONE Stop: 11/18/20 06:49 Last Admin: 11/18/20 07:10 Dose: 10 mg Documented by: [id number] Morphine Sulfate (Morphine Sulfate 10 Mg/Ml Carp/Vial) 6 mg IV NOW STA Stop: 11/18/20 12:00 Last Admin: 11/18/20 12:04 Dose: 6 mg Documented by: [id number] Description This is a 21 electrode EEG with a single channel dedicated to limited EKG. The electrodes were placed in accordance with the International 10-20 system. There is a posterior dominant rhythm of 10 Hz which is symmetrically distributed and attenuates with eye opening. There is a normal anterior posterior organization. Photic stimulation is unremarkable. Hyperventilation was not performed. There is a symmetric frontal beta rhythm. There is no lateralized or focal slowing. No epileptiform abnormalities observed. Interpretation Normal awake/drowsy EEG. A normal EEG does not completely exclude a diagnosis of epilepsy. Further clinical correlation may be needed. [facility] EEG Procedure Codes Indication for Procedure (1) Seizure: Neurology Neurology: 99196 EEG include record awake & drowsy
--- NOTE | 2020-11-20 21:11 | Hospitalist Progress Note ---
Date of Service November 20, 2020 Assessment & Plan (1) Thoracic compression fracture: Thoracic spine CT IMPRESSION: An acute moderate inferior endplate compression fracture at T5 demonstrating up to 50% loss of height centrally. There is also a 2 mm of retropulsion the posterior inferior corner of T5 without central canal narrowing. Patient will be on standard Tylenol scheduled he will be on Lidoderm patch with as needed opiates for pain breakthrough Orthopedic consultation Dr. Chacon will have kyphoplasty in tomorrow. (2) Seizure: Patient has had seizures in the past associate with hypoglycemia, he did also have an episode which sounds procedure part of his diabetic diagnosis. CT scan of the head and cervical spine performed 11/18/20 shows no acute intracranial abnormality, no fractures within the cervical spine Patient also had a CT angiogram of the chest, 11/18/2020 this shows the compression fracture T5, emphysema, no PE, subsegmental atelectasis Appreciate Neuro input: Normal EEG MRI of brain: negative May need holter monitor at discharge. Will hold Antiepileptic drugs at this time. (3) Diabetes: The patient's diabetes he typically typically takes Lantus 25 units twice daily and the lispro sliding scale with meals given his Lantus doses exceeding 0.5 units/kg reduce his Lantus dose slightly. He also does not have a great idea about his sliding scale. He states he did not take anything of the usual with regards to his insulin dosing but did not eat the typical amount of food on the day prior. 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 May benefit from cutting back blood sugars. (4) Hypothyroidism: Patient remains on Synthroid therapy, TSH and T4 will be at the ER labs (5) Dyslipidemia: Patient is atorvastatin 40 (6) DVT prophylaxis: SCDs until the determination of surgery is passed Admission and Anticipated Discharge Date Admission Date: November 18, 2020 Subjective Patient is feeling slightly more comfortable. But continues to have pain. Review of Systems Review of Systems: All systems reviewed & are unremarkable except as noted in HPI & below Physical Exam Physical Exam: Patient appears comfortable. Tip of his tongue has a contusion with a small laceration Head exam is normocephalic atraumatic no scleral icterus Neck is without JVD, thyromegaly, or carotid bruits. Lungs are clear to auscultation, no focal loss of breath sounds Cardiac exam, Rhythm is regular.. No murmurs, rubs or gallops. Abdominal exam reveals normal bowel sounds, soft non tender, no masses Extremities are nonedematous and both pedal pulses are present Neurologic exam is alert and oriented, no focal loss of strength or sensation Skin is without bruises or rashes Psychologically is without concerns for anxiety or depression Results & Data Results & Data ([facility]) Vital Signs (Past 12 Hours) Vital Signs Temp Pulse Pulse Resp BP Pulse Ox 11/20/20 20:00 36.7 C 60 20 136/76 97 11/20/20 15:11 36.7 C 60 18 132/69 97 11/20/20 15:00 66 11/20/20 11:24 36.7 C 69 18 132/70 98 PG Care Time/CCT Total # of Minutes Spent Total Time Spent with Patient: Total time spent is greater than 50% in coordination of care (as documented) at patient's floor/unit and/or counseling patient: Coding Level of Care Code 92953 Subseq Hosp Care Lvl 2 Diagnoses Thoracic compression fracture S22.050A Encounter type: initial encounter Thoracic vertebra fracture level: T5 Seizure R56.9 Diabetes E13.69 Diabetes mellitus complication status: with other specified complication 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 terminal make up operator insulin use status Diabetes mellitus type: other specified (including BARON) Hypothyroidism E03.9 Dyslipidemia E78.5 DVT prophylaxis Z29.9 Time Spent (min) 25 (1) Diabetes Diabetes mellitus complication status: with other specified complication 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
[2020-11-21] MEDS ORDERED: CLINDAMYCIN 600 MG/54 ML BAG IV SCH (06:00)
[2020-11-21] MEDS: oxyCODONE HCL IR 5 MG TAB (IMMEDIATE RELEASE) PO PRN ×2 (06:24→14:15)
[2020-11-21] MEDS: LEVOTHYROXINE SODIUM 137 MCG TABLET PO SCH (06:24)
[2020-11-21] MEDS: INSULIN ASPART 100 UNITS/ML 3 ML PEN SC SCH ×5 (06:44→21:33)
[2020-11-21] MEDS: LIDOCAINE 5% 1 PATCH TD SCH (07:41)
[2020-11-21] MEDS ORDERED: INSULIN GLARGINE SOLOSTAR 100 UNITS/ML 3 ML PEN SC ONE ×3 (07:45→21:00)
[2020-11-21] MEDS: MoRPHine SULFATE 4 MG/ML 1 ML CARP\\VIAL IV PRN ×2 (07:47→18:02)
[2020-11-21 07:49] LABS: Hematocrit (blood only) 44.1 % (42-52); Hemoglobin 15.1 g/dL (14.0-18.0); Mean Corpuscular Hemoglobin 30.6 pg (25-34); Mean Corpuscular Hgb Conc 34.2 g/dL (32-36); Mean Corpuscular Volume 89.3 fL (80-100); Platelet Count 267 K/uL (130-400); RDW Coefficient of Variation 14.2 % (11.5-14.5); RDW Standard Deviation 46.5 fL (36.4-46.3); Red Blood Count 4.94 M/uL (4.7-6.1); White Blood Count 9.88 K/uL (4.8-10.8)
[2020-11-21 08:34] LABS: BUN Creatinine Ratio 14.6 (10-20); Calcium 8.9 mg/dl (8.5-10.1); Creatinine Clr Calc Pharmacy 86.3 ml/min; Est GFR (African American) 97.3; Est GFR (Non-African American) 83.9; Potassium 4.9 mmol/L (3.5-5.1)
[2020-11-21 08:45] LABS: Beta-Hydroxybutyrate 10.79 mg/dl (0.2-2.81)
[2020-11-21] MEDS: ATORVASTATIN 40 MG TAB PO SCH (09:00)
[2020-11-21] MEDS: ACETAMINOPHEN 500 MG TAB PO SCH ×3 (09:00→21:34)
--- NOTE | 2020-11-21 09:05 | History & Physical Bridge Note ---
Date of Service November 21, 2020 History & Physical Bridge Note I have examined the patient, reviewed the History & Physical and in the interval since the performance of the History & Physical I have noted the following changes of clinical significance: no changes noted T5 kyphoplasty with biopsy
[2020-11-21] MEDS ORDERED: ONDANSETRON INJ 2 MG/ML 2 ML VIAL IV PRN (09:13)
[2020-11-21] MEDS ORDERED: ePHEDrine sulfate 50 MG/ML AMP IV PRN (09:13)
[2020-11-21] MEDS ORDERED: HYDROmorphone INJ 1 MG/ML SYRINGE IV PRN (09:13)
[2020-11-21] MEDS ORDERED: ATROPINE SULFATE 0.1 MG/ML 10ML SYR IV PRN (09:13)
[2020-11-21] MEDS ORDERED: MEPERIDINE HCL 25 MG/ML CARP/VIAL IV PRN (09:13)
[2020-11-21] MEDS ORDERED: PHENYLEPHRINE 100MCG/ML 5ML SYR IV PRN (09:13)
[2020-11-21] MEDS ORDERED: LABETALOL HCL IV 5 MG/ML 20ML IV PRN (09:13)
[2020-11-21] MEDS ORDERED: fentaNYL citrate 100 MCG/2 ML VIAL IV PRN (09:13)
[2020-11-21] MEDS ORDERED: BUPIVACAINE/EPINEPHRINE 0.5% MPF 1:200,000 30 ML VIAL ONE (09:19)
[2020-11-21] MEDS ORDERED: MIDAZOLAM HCL 1 MG/ML 2ML VIAL ONE (09:20)
[2020-11-21] MEDS ORDERED: ONDANSETRON INJ 2 MG/ML 2 ML VIAL ONE (09:20)
[2020-11-21] MEDS ORDERED: fentaNYL citrate 100 MCG/2 ML VIAL ONE (09:20)
[2020-11-21] MEDS ORDERED: PROPOFOL IV EMULSION 10 MG/ML 20 ML VIAL IV ONE (09:20)
[2020-11-21] MEDS ORDERED: ROCURONIUM BROMIDE 10 MG/ML 5 ML VIAL IV ONE (09:20)
[2020-11-21] MEDS ORDERED: LIDOCAINE HCL 2% 2 ML VIAL/AMP(20MG/ML) INFIL ONE (09:20)
[2020-11-21] MEDS ORDERED: CLINDAMYCIN 600 MG/54 ML D5W IV ONE (09:23)
[2020-11-21] MEDS ORDERED: IOPAMIDOL INJ 61% 15 ML VIAL ONE (09:28)
[2020-11-21] MEDS ORDERED: GLYCOPYRROLATE 0.2 MG/ML VIAL ONE (10:12)
[2020-11-21] MEDS ORDERED: NEOSTIGMINE METHYLSULFATE 1 MG/ML 10ML VIAL ONE (10:12)
[2020-11-21] MEDS ORDERED: PHENYLEPHRINE 100MCG/ML 5ML SYR ONE (10:12)
--- NOTE | 2020-11-21 10:34 | Operative Report ---
Post Operative Report Pre & Post Diagnosis Operation Date: 11/21/20 13:55 Pre-Op Diagnosis: Thoracic back fracture Post-Op Diagnosis: Thoracic back fracture I identified the patient and participated in the time-out.: Yes Procedure Operation Date: 11/21/20 13:55 Actual Procedures #1 kyphoplasty T5 vertebral body. #2 biopsy of T5 vertebral body Surgeon Dinesh Chacon, DO Industrial Truck Mechanic None Estimated Blood Loss 5 Findings Consistent with Post-Op Diagnosis Specimens T5 vertebral body Indications This is a 54-year-old male presents with acute T5 compression fracture. He did trial oral and IV pain medications but continued to have severe pain limiting his activity. Subsequently he is having a T5 kyphoplasty. Description of Procedure Patient was met with identified informed consent obtained. Patient was then taken to the operative suite underwent a patient placed in the prone position the Jayjay table on top of the chest padded bolsters. All bony prominences well-padded eyes inspected to ensure no external pressure placed upon the bed at this point the thoracolumbar spine was prepped draped in a sterile fashion. With assistance of fluoroscopy identified the T5 vertebral body in AP and lateral planes. 2 small incisions were placed just lateral to the T5 pedicles and 2 Kyphon working cannulas were placed by way of a transpedicular approach into the vertebral body. 2 core biopsies were obtained. I then inserted to 15 mm Kyphon balloons and sequentially inflated these balloons. They were subsequently removed and approximately 4-1/2 cc of Kyphon cement injected with fluoroscopic visualization. Demonstrated excellent interdigitation and placement. The working cannulas were removed. The small incision was closed with subcutaneous 4-0 Monocryl and sterile dressings placed. The patient awakened taken to PACU stable condition. I attest to the content of the Intraoperative Record and any orders documented therein. Any exceptions are noted below.
[2020-11-21] MEDS ORDERED: INSULIN ASPART PER UNIT SC STA (10:55)
--- NOTE | 2020-11-21 11:11 | Anesthesiology Progress Note ---
Date of Service November 21, 2020 Anesthesia Post Procedure Vital Signs Vital Signs: Temp Pulse Pulse Resp BP Pulse Ox 11/21/20 11:00 58 L 14 139/71 99 11/21/20 10:50 59 L 14 137/68 98 11/21/20 10:43 36.3 C L 69 14 135/78 98 11/21/20 09:04 37.0 C 75 18 152/81 H 96 11/21/20 07:38 37.1 C 62 16 145/74 H 94 11/21/20 06:20 58 L 11/21/20 03:00 36.6 C 61 20 126/65 95 11/21/20 02:29 54 L 11/20/20 23:00 36.8 C 58 L 20 125/73 97 11/20/20 20:00 36.7 C 60 20 136/76 97 11/20/20 15:11 36.7 C 60 18 132/69 97 11/20/20 15:00 66 11/20/20 11:24 36.7 C 69 18 132/70 98 Pain Intensity Upper Back: Pain Intensity: 2 Transfer of Care Handoff Completed per policy Notes Mental Status: alert / awake / arousable Patient Amnestic to Procedure: Yes Nausea / Vomiting: adequately controlled Pain: adequately controlled Airway Patency, RR, SpO2: stable & adequate BP & HR: stable & adequate Hydration State: stable & adequate Anesthetic Complications: no major complications apparent and Pt Satisfied with anesthetic care Notes: The patient is awake and stable. His BSG was trending down preoperatively and went down to 195 in the OR. However, his BSG went up to 249 upon arrival to PACU. Per pharmacy recommendations he was given Novolog SC 8 units in PACU. His BSG will continue to be monitored on the floor.
--- NOTE | 2020-11-21 13:40 | Pharmacy Report ---
Pharmacy Glycemic Short Note 2 - Date of Service November 21, 2020 - Glycemic Short BSG Results (Last 24 hours): 11/20/20 11/20/20 11/20/20 15:56 15:58 16:16 Glucose POC Glucose 61 L* 81 63 L* 11/20/20 11/20/20 11/21/20 16:17 20:24 00:16 Glucose POC Glucose 75 75 118 H 11/21/20 11/21/20 11/21/20 06:35 06:38 07:23 Glucose POC Glucose 310 H* 319 H* 311 H* 11/21/20 11/21/20 11/21/20 07:24 07:28 08:46 Glucose 336 H* POC Glucose 367 H* 258 H 11/21/20 11/21/20 11/21/20 09:29 10:18 10:46 Glucose POC Glucose 228 H 195 H 249 H 11/21/20 11:46 Glucose POC Glucose 178 H OUTPATIENT ANTIDIABETIC REGIMEN: * Lantus 25 units SQ BID * Humalog per scale * CF = 30mg/dl/unit * CR = 1 unit for every 10g CHO consumed ASSESSMENT: 11/21: * Patient received total of 45 units of insulin yesterday, of which 25 units were basal insulin * BSGs trending down yesterday at dinner - 61 mg/dL likely related to too much novolog at lunch time. BSG at bedtime was 75 mg/dL - basal insulin had been held * Fasting BSG elevated this AM in the 300s, patient NPO for procedure. Plan to give 40 units x 1 now (to make up for missed Lantus dose last evening) * Diet resumed post procedure - continue novolog, PO intake poorer thus far will hold further basal for today PLAN FOR INPATIENT GLYCEMIC CONTROL: * Basal insulin: Lantus 40 x 1 * Bolus insulin: tighten CF/CR * NovoLog per scale ACHS or Q6hrs while NPO * Goal Range: Low 110 mg/dL - High 140 mg/dL * Correction Factor: 25 mg/dL/unit * Nutritional / Prandial insulin per carb ratio of 1 unit per 8 grams CHO consumed PLAN FOR DISCHARGE: * TBD
--- NOTE | 2020-11-21 15:21 | Fluoroscopy Report ---
FL thoracic spine 2V HISTORY: 54 years-old Male T5 KYPHOPLASTY acute mid back pain COMPARISON: CT thoracic spine 11/18/2020 TECHNIQUE: 2 spot fluoroscopic images of the thoracic spine were obtained utilizing 103.7 seconds flu oroscopy time FINDINGS: Status post kyphoplasty of the acute T5 compression deformity. Alignment appears satisfactory. IMPRESSION: Fluoroscopic assistance as above. ACT 112: Negative or not required by law. The above report was generated using voice recognition software. It may contain grammatical, syntax o r spelling errors. Electronically signed by: Fritz Tristan M.D. 11/21/2020 3:19 PM
[2020-11-21] MEDS: MoRPHine SULFATE 2 MG/ML CARP IV PRN (16:48)
--- NOTE | 2020-11-21 21:47 | Hospitalist Progress Note ---
Date of Service November 21, 2020 Assessment & Plan (1) Thoracic compression fracture: Thoracic spine CT IMPRESSION: An acute moderate inferior endplate compression fracture at T5 demonstrating up to 50% loss of height centrally. There is also a 2 mm of retropulsion the posterior inferior corner of T5 without central canal narrowing. Patient will be on standard Tylenol scheduled he will be on Lidoderm patch with as needed opiates for pain breakthrough Orthopedic consultation Dr. Chacon S/P kyphoplasty. (2) Seizure: Patient has had seizures in the past associate with hypoglycemia, he did also have an episode which sounds procedure part of his diabetic diagnosis. CT scan of the head and cervical spine performed 11/18/20 shows no acute intracranial abnormality, no fractures within the cervical spine Patient also had a CT angiogram of the chest, 11/18/2020 this shows the compression fracture T5, emphysema, no PE, subsegmental atelectasis Appreciate Neuro input: Normal EEG MRI of brain: negative May need holter monitor at discharge. Will hold Antiepileptic drugs at this time. (3) Diabetes: The patient's diabetes he typically typically takes Lantus 25 units twice daily and the lispro sliding scale with meals given his Lantus doses exceeding 0.5 units/kg reduce his Lantus dose slightly. He also does not have a great idea about his sliding scale. He states he did not take anything of the usual with regards to his insulin dosing but did not eat the typical amount of food on the day prior. It appears he has intermittent low blood sugars in emblem drawer in: at 2-3 am. May benefit from cutting back blood sugars. (4) Hypothyroidism: Patient remains on Synthroid therapy, TSH and T4 will be at the ER labs (5) Dyslipidemia: Patient is atorvastatin 40 (6) DVT prophylaxis: SCDs Admission and Anticipated Discharge Date Admission Date: November 18, 2020 Subjective Patient reports left shoulder pain. This occured prior to surgery. He hopes pain improves by tomorrow. Review of Systems Review of Systems: All systems reviewed & are unremarkable except as noted in HPI & below Physical Exam Physical Exam: Patient appears comfortable. Tip of his tongue has a contusion with a small laceration Head exam is normocephalic atraumatic no scleral icterus Neck is without JVD, thyromegaly, or carotid bruits. Lungs are clear to auscultation, no focal loss of breath sounds Cardiac exam, Rhythm is regular.. No murmurs, rubs or gallops. Abdominal exam reveals normal bowel sounds, soft non tender, no masses Extremities are nonedematous and both pedal pulses are present Neurologic exam is alert and oriented, no focal loss of strength or sensation Skin is without bruises or rashes Psychologically is without concerns for anxiety or depression Results & Data Results & Data ([facility]) Vital Signs (Past 12 Hours) Vital Signs Temp Pulse Resp BP Pulse Ox 11/21/20 19:02 36.8 C 74 18 148/77 H 96 11/21/20 14:30 36.6 C 76 18 149/78 H 100 11/21/20 12:30 37.0 C 20 L 18 141/93 H 92 11/21/20 12:08 37.1 C 67 18 153/78 H 96 11/21/20 12:00 37.1 C 66 18 138/74 91 11/21/20 11:40 36.8 C 58 L 16 135/71 94 11/21/20 11:25 57 L 14 128/66 94 11/21/20 11:10 36.5 C 57 L 14 131/71 96 11/21/20 11:00 58 L 14 139/71 99 11/21/20 10:50 59 L 14 137/68 98 11/21/20 10:43 36.3 C L 69 14 135/78 98 PG Care Time/CCT Total # of Minutes Spent Total Time Spent with Patient: Total time spent is greater than 50% in coordination of care (as documented) at patient's floor/unit and/or counseling patient: Coding Level of Care Code 66213 Subseq Hosp Care Lvl 2 Diagnoses Thoracic compression fracture S22.050A Encounter type: initial encounter Thoracic vertebra fracture level: T5 Seizure R56.9 Diabetes E13.69 Diabetes mellitus complication status: with other specified complication Diabetes mellitus 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 technician insulin use: unspecified termite technician insulin use status Diabetes mellitus type: other specified (including BARON) Hypothyroidism E03.9 Dyslipidemia E78.5 DVT prophylaxis Z29.9 Time Spent (min) 25 (1) Diabetes Diabetes mellitus complication status: with other specified complication Diabetes mellitus mcc insulin use: unspecified termite technician insulin use status Diabetes mellitus type: other specified (including BARON) Qualified Code(s): E13.69 - Other specified diabetes mellitus with other specified complication (2) Thoracic compression fracture Encounter type: initial encounter Thoracic vertebra fracture level: T5 Qualified Code(s): S22.050A - Wedge compression fracture of T5-T6 vertebra, initial encounter for closed fracture
[2020-11-22] MEDS: MoRPHine SULFATE 4 MG/ML 1 ML CARP\\VIAL IV PRN ×2 (01:46→06:23)
[2020-11-22] MEDS: LEVOTHYROXINE SODIUM 137 MCG TABLET PO SCH (06:23)
[2020-11-22] MEDS: oxyCODONE HCL IR 5 MG TAB (IMMEDIATE RELEASE) PO PRN (07:34)
[2020-11-22] MEDS: LIDOCAINE 5% 1 PATCH TD SCH (07:57)
[2020-11-22] MEDS: ATORVASTATIN 40 MG TAB PO SCH (07:58)
[2020-11-22] MEDS: ACETAMINOPHEN 500 MG TAB PO SCH (07:58)
[2020-11-22] MEDS: INSULIN ASPART 100 UNITS/ML 3 ML PEN SC SCH (08:34)
[2020-11-22 08:35] LABS: Hematocrit (blood only) 43.5 % (42-52); Mean Corpuscular Hemoglobin 30.8 pg (25-34); Mean Corpuscular Hgb Conc 34.5 g/dL (32-36); Mean Corpuscular Volume 89.3 fL (80-100); Platelet Count 283 K/uL (130-400); RDW Coefficient of Variation 14.3 % (11.5-14.5); RDW Standard Deviation 47.3 fL (36.4-46.3); Red Blood Count 4.87 M/uL (4.7-6.1); White Blood Count 7.55 K/uL (4.8-10.8)
[2020-11-22] MEDS ORDERED: INSULIN GLARGINE SOLOSTAR 100 UNITS/ML 3 ML PEN SQ SCH (09:00)
[2020-11-22 09:14] LABS: BUN Creatinine Ratio 10.7 (10-20); Calcium 9.3 mg/dl (8.5-10.1); Est GFR (African American) 112.3; Est GFR (Non-African American) 96.9; Potassium 4.3 mmol/L (3.5-5.1)
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
[2020-11-22] MEDS: MoRPHine SULFATE 2 MG/ML CARP IV PRN (09:56)
--- NOTE | 2020-11-22 10:24 | Orthopedic Progress Note ---
Date of Service November 22, 2020 Assessment & Plan (1) Thoracic compression fracture: Admission and Anticipated Discharge Date Admission Date: November 18, 2020 At this time he may discharge home from an orthopedic standpoint he is limited only for the next week with a 5 to 10 pound lifting restriction then transition to regular activity. He can follow-up with his local physician if there is any other issues she can return to our clinic. Subjective Patient's back pain is markedly improved. He is complaining of some left periscapular pain more muscular related. Is not radicular. Physical Exam Physical Exam: On exam he is excellent strength testing is able in bed quite comfortably. Results & Data ([facility]) Vital Signs (Past 12 Hours) Vital Signs Temp Pulse Pulse Resp BP BP Pulse Ox 11/22/20 10:00 36.7 C 72 22 128/72 118/72 96 11/22/20 07:38 36.7 C 72 22 118/72 96 11/22/20 07:03 71 11/22/20 03:00 36.8 C 63 20 128/72 95 11/22/20 00:46 62 11/21/20 23:00 36.7 C 64 18 122/69 96 (1) Thoracic compression fracture Encounter type: initial encounter Thoracic vertebra fracture level: T5 Qualified Code(s): S22.050A - Wedge compression fracture of T5-T6 vertebra, initial encounter for closed fracture
== END 2020-11-22 11:15 | disposition home or self-care (01) | DRG 479 ==
LOC: ED 06:01 → 2W 11:25 → SUATTDRO 11:25 → 2W 13:06
DX: Z88.0 Allergy status to penicillin; E53.9 Vitamin B deficiency, unspecified; S22.050A Wedge compression fracture of T5-T6 vertebra, initial encounter for closed fracture; R56.9 Unspecified convulsions; W18.39XA Other fall on same level, initial encounter; Z79.899 Other long term (current) drug therapy; Z79.890 Hormone replacement therapy; Z20.822 Contact with and (suspected) exposure to COVID-19; Z87.891 Personal history of nicotine dependence; Z79.4 Long term (current) use of insulin; E11.65 Type 2 diabetes mellitus with hyperglycemia; Y99.8 Other external cause status; Y92.833 Campsite as the place of occurrence of the external cause; E03.9 Hypothyroidism, unspecified; E78.5 Hyperlipidemia, unspecified; E11.649 Type 2 diabetes mellitus with hypoglycemia without coma